=== PATIENT | female | born 1990 | race Caucasian/White ===

== ENCOUNTER 2017-01-12 12:26 | Emergency (ER) | payer SELFPAY ==
[~2017-01-12] VITALS: Ht 162.6 cm; Wt 85.0 kg
[~2017-01-12 12:26] MED LIST: CIPRO500 MG OR; CIPROFLOXACN500 MG PO; PROMETHAZINE25 MG OR; ULTRAM50 M1 PO; ZOFRAN ODT8 MG PO; [UNRECOGNIZED DRUG - OTHER]
[2017-01-12] MEDS ORDERED: AMOXICILLIN500 MG PO (13:04)
[2017-01-12 13:10] VITALS: BP 126/85
== END 2017-01-12 13:10 | disposition home or self-care (01) | DRG 153 ==
LOC: ED 12:26
DX: J02.0 Streptococcal pharyngitis (principal)